=== PATIENT | male | born 2005 | race Caucasian/White ===

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

== ENCOUNTER 2024-02-05 18:34 | Emergency (ER) | payer OTHER, SELFPAY ==
--- NOTE | 2024-02-05 18:38 | ED_ITS ---
HPI - Eye Problem General Chief complaint: Eye Problems Stated complaint: blurring vision right eye Time Seen by Provider: 02/06/24 00:28 Source: patient Mode of arrival: ambulatory Limitations: no limitations History of Present Illness ED Provider: Dr. Lee Fung HPI Narrative: 18-year-old male with no significant past medical history who presents emergency department for evaluation of right eye blurred vision and pain. Patient states that the symptoms started 4-5 days prior to coming to the emergency department. He states that they came on suddenly. He states that his 1st symptom was itchiness in his eye and he splashed some water in his eye. He then had pain in his right eye which was worse with movement and blurred vision which she describes as a cloudy sensation that he can see through. He states that his symptoms continued therefore came to the emergency department for evaluation. He states that over the last 3 weeks he has felt bad each week. He states that 1 week he had rhinorrhea and a cough which is secondary to allergies. He states that another week he had a bad migraine headache which eventually resolved. He currently denies fever, chills, rhinorrhea, cough, chest pain, shortness of breath, headache, nausea or vomiting Related Data Allergies Allergy/AdvReac Type Severity Reaction Status Date / Time No Known Allergies Allergy Verified 02/05/24 18:40 [No Known Allergies*] Review of Systems Review of Systems: Yes all other systems are reviewed and are negative [facility] Social History Social History Advance Directives: No Physical Exam Vital Signs: Vital Signs: Last Vital Signs Temp 97.8 F 02/06/24 00:00 Pulse 88 02/06/24 00:00 Resp 16 02/06/24 00:00 BP 118/62 02/06/24 00:00 Pulse Ox 97 02/06/24 00:00 O2 Del Method Room Air 02/06/24 00:00 BMI result Body Mass Index 31.5 Vital signs were normal Exam: General: Awake, alert, in no distress, answers all questions appropriately Eye exam Extraocular muscles are intact, sclerae and conjunctiva were normal. No foreign bodies seen with magnifying lens. Visual acuities Right eye: 20/25 Left eye: 20/15 Both eyes: 20/15 Intra-ocular pressures: Right eye: 11 Left eye: 11 Fluorescein dye exam: No obvious corneal abrasion noted in either eye Course Course Course Narrative: This is a Rapid Medical Exam performed in triage by Yesica Gandhi PA-C. Full HPI, ROS and PE to be performed by primary ED provider. 18yo M w/no sig presenting to the ED c/o right eye blurry vision x few days with assoc eye pain. Denies injury/trauma, fall, tearing. denies wearing glasses/contacts PE: +pain with EOMs per patient. NO entrapment. No erythema/discharge Plan: VA, eye staining Medical Decision Making Medical Decision Making MDM Narrative: 18-year-old male with no significant past medical history presents emergency department for evaluation of 4-5 days of blurred/cloudy vision and pain especially with movement of his right eye. Symptoms came on suddenly and have been persistent. Patient's vital signs were normal. Visual acuity and intracranial pressures in both eyes were normal. Differential diagnosis: ?Includes but is not limited to corneal abrasion, foreign body, glaucoma, optic neuritis, retinal detachment, ocular migraine, infectious process Course: At this time I do not have a clear etiology for the patient's pain or blurred vision. Patient was advised to take ibuprofen 400 mg 3 times a day for the next 4 days. The patient was advised to contact our surgical asst, Dr. Mendoza for follow-up appointment within 2-3 days for further evaluation of his symptoms Admission/Observation Consideration of admission/observation: Escalation of care including admission/observation considered (No) Discharge Plan Discharge Clinical Impression: Ocular pain, right eye, Blurred vision, right eye Patient Disposition: Home, Self-Care Additional Instructions: Your visual acuity ( eye vision test) were normal in both eyes which is reassuring. Your intra-ocular pressure in both eyes was normal. There was no evidence for corneal abrasion seen on the fluorescein dye and Wood's lamp exam. At this time I do not have a clear cause for the pain in your right eye in your blurred vision. Take ibuprofen 200 mg pills, 2 pills every 6 hours (3 times a day) for 4 days to see if this improves her pain. Given your change in your vision I want you to follow-up with our surgical asst, Dr. Mendoza. Call his office tomorrow to try to get an appointment within 2-3 days. Follow-up with your doctor in 2 days. Please return to the emergency department if your symptoms get worse or if you develop any symptoms that are concerning to you. Referrals: Gunnar Mendoza [Physician] - 3 days (Right eye pain with blurred vision x4 days, visual acuities were normal, intra-ocular pressure is normal, fluorescein dye exam normal with no abrasion) Print Language: Romanian
[2024-02-05 18:39] VITALS: BP 147/78; PULSE 103; RESP 20; TEMP 36.9; O2SAT 95; BMI 31.5
--- NOTE | 2024-02-05 23:55 | MHC.EDTECH ---
pt states he feels like there's a net over his right eye when doing visual acuity
[2024-02-06] VITALS: BP 118/62; PULSE 88; RESP 16; TEMP 36.6; O2SAT 97
[2024-02-06] MEDS: Fluorescein Sodium STRIP 1 STRIP EYE-RIGHT (00:54)
[2024-02-06] MEDS: Tetracaine HCl/PF 0.5% Oph Sol 4 ML DROPS 1 DROP EYE-RIGHT (00:54)
[2024-02-06] MEDS: Ibuprofen 400 MG TABLET PO (01:20)
[2024-02-06 01:23] VITALS: BP 118/62; PULSE 88; RESP 16; TEMP 36.6; O2SAT 97
== END 2024-02-06 01:24 | disposition home or self-care (01) ==
PROVIDERS: Emergency Provider Emergency Medicine Emergency Medical Services; PCP Pediatrics
DX: H57.11 Ocular pain, right eye (principal); H53.8 Other visual disturbances; R05.9 Cough, unspecified; J34.89 Other specified disorders of nose and nasal sinuses; R51.9 Headache, unspecified
CPT/HCPCS: 99283; 99284